=== PATIENT | female | born 1995 | race Caucasian/White ===

== ENCOUNTER 2019-07-28 13:34 | Outpatient (CLI) | payer OTHER ==
--- NOTE | 2019-07-28 14:31 | CT ---
EXAM: CT NECK SOFT TISSUE POST CONTRAST: HISTORY:Thyroid cancer. Cervical lymphadenopathy. Region of concern was marked. Left-sided neck mass/ not. COMPARISON:None CORRELATION:None FINDINGS: Brain parenchyma: No pathologic enhancement of the visualized brain parenchyma. Sinuses: Adequate aeration of the visualized paranasal sinuses and mastoid air cells. Nasopharynx:Adequate aeration. No mucosal abnormality. Oral cavity:Aerodigestive tract is patent. No mucosal abnormality. Limited evaluation of the oral cav ity due to dental amalgam artifact. Midline fatty raphae of the tongue is preserved. Hypopharynx: No mucosal abnormality. Larynx: No mucosal abnormality. Paraspinal muscles: Symmetric attenuation of the paraspinal muscles and symmetric attenuation of the sternocleidomastoid muscles.. Parotid and salivary glands: Symmetric attenuation of the parotid and submandibular glands Thyroid gland: Surgically absent. Spine: Vertebral body height is maintained. No fracture. No significant central canal stenosis or sig nificant neural foraminal narrowing. Limited evaluation due to technique. Lymph nodes: Enlarged left level 5 lymph node measures 1.7 x 0.8 cm and corresponds to the level of t he palpable marker. Upper normal bilateral level 1 and 2 lymph nodes are noted. Lung apices and upper mediastinum: No acute abnormality. IMPRESSION: 1. Enlarged left level 5 lymph node, corresponding to the palpable marker.
== END 2019-07-28 13:35 | disposition home or self-care (01) ==
LOC: SCSCT 13:34
PROVIDERS: ATTEND Physician Assistant
DX: R59.0 Localized enlarged lymph nodes (principal); Z85.850 Personal history of malignant neoplasm of thyroid
CPT/HCPCS: 70491